=== PATIENT | female | born 1990 | race Asian ===

== ENCOUNTER 2018-08-24 08:11 | Observation (INO) | payer OTHER ==
[2018-08-24] MEDS ORDERED: ceFAZolin 2 GM/DEXTROSE 100 ML IV ONE (09:23)
[2018-08-24] MEDS ORDERED: PHENAZOPYRIDINE HCL 200 MG TAB PO ONE (09:23)
[2018-08-24] MEDS ORDERED: ACETAMINOPHEN 500 MG TAB PO ONE (09:23)
[2018-08-24] MEDS ORDERED: GABAPENTIN 300 MG CAP PO ONE (09:23)
[2018-08-24] MEDS ORDERED: LR 1,000 ML IV ONE (09:24)
[2018-08-24] MEDS ORDERED: LIDOCAINE 1% 2 ML INJ ID PRN (09:24)
--- NOTE | 2018-08-24 10:38 | PDHPUP ---
History & Physical Update H&P update statement: This history and physical update is based on an assessment of the patient which was completed after admission or registration (within 24 hours), but prior to the surgery/procedure. H&P update: H&P reviewed & patient examined, no change in patient's condition since H&P completed
[2018-08-24] MEDS ORDERED: MIDAZOLAM 2 MG/2 ML VIAL IVP ONE (10:57)
--- NOTE | 2018-08-24 10:57 | PDANEPAE ---
ANE Past Medical History - Cardiovascular History Hx Hypertension: No Hx Arrhythmias: No Hx Chest Pain: No Hx Coronary Artery / Peripheral Vascular Disease: No Hx CHF / Valvular Disease: No Hx Palpitations: No Cardiovascular History Comment: high chol - Pulmonary History Hx COPD: No Hx Asthma/Reactive Airway Disease: No Hx Recent Upper Respiratory Infection: No Hx Oxygen in Use at Home: No Hx Sleep Apnea: No Sleep Apnea Screening Result - Last Documented: Negative - Neurologic History Hx Cerebrovascular Accident: No Hx Seizures: No Hx Dementia: No - Endocrine History Hx Diabetes: No - Renal History Hx Renal Disorders: No - Liver History Hx Hepatic Disorders: No - Neurological & Psychiatric Hx Hx Neurological and Psychiatric Disorders: Yes Neurological / Psychiatric History Comment: anxiety - Cancer History Hx Cancer: No - Congenital Disorder History Hx Congenital Disorders: No - GI History Hx Gastrointestinal Disorders: No - Other Health History Other Health History: wears glasses - Chronic Pain History Chronic Pain: Yes (abd pain radiating to right leg) - Surgical History Prior Surgeries: 2017 laprascopic surg for endometriosis. sinus surgery 2014 ANE Review of Systems Review of Systems: - Exercise capacity METS (RN): 4 METS ANE Patient History - Allergies Allergies/Adverse Reactions: No Known Allergies Allergy (Verified 08/04/18 12:19) - Home Medications Home Medications: Naproxen Sodium [Aleve 220 MG (*)] 220 mg PO BID PRN 07/22/18 [Last Taken ] Aygestin 7.5 mg PO DAILY 08/04/18 [Last Taken 08/23/18] - NPO status NPO Since - Liquids (Date): 08/24/18 NPO Since - Liquids (Time): 00:30 NPO Since - Solids (Date): 08/23/18 NPO Since - Solids (Time): 23:30 - Smoking Hx Smoking Status: Never smoked - Family Anes Hx Family Hx Anesthesia Complications: none ANE Labs/Vital Signs - Vital Signs Blood Pressure: 124/85 Heart Rate: 88 Respiratory Rate: 12 O2 Sat (%): 98 Height: 175.26 cm Weight: 58.967 kg ANE Physical Exam - Airway Neck exam: FROM Mallampati Score: Class 1 Mouth exam: normal dental/mouth exam - Pulmonary Pulmonary: no respiratory distress - Cardiovascular Cardiovascular: regular rate and rhythym - ASA Status ASA Status: I ANE Anesthesia Plan Anesthesia Plan: general endotracheal anesthesia Total IV Anesthesia: Yes
[2018-08-24] MEDS ORDERED: HYDROmorphONE/DILAUDID 2 MG/ML INJ ONE (11:00)
[2018-08-24] MEDS ORDERED: PROPOFOL/EMULSION 500 MG/50 ML BOTTLE IV ONE ×2 (11:00→11:55)
[2018-08-24] MEDS ORDERED: LIDOCAINE 2% 100 MG/5 ML SYR ONE (11:01)
[2018-08-24] MEDS ORDERED: KETOROLAC 30 MG/1 ML SDV ONE (11:01)
[2018-08-24] MEDS ORDERED: ROCURONIUM 100 MG/10 ML VIAL ONE (11:01)
[2018-08-24] MEDS ORDERED: DEXAMETHASONE 4 MG/ML VIAL ONE ×2 (11:01)
[2018-08-24] MEDS ORDERED: ONDANSETRON 4 MG/2 ML VIAL ONE (11:01)
[2018-08-24] MEDS ORDERED: METOCLOPRAMIDE 10 MG/2 ML VIAL ONE (11:01)
[2018-08-24] MEDS ORDERED: RANITIDINE 50 MG/2 ML VIAL ONE (11:07)
[2018-08-24] MEDS ORDERED: BUPIVACAINE/EPI 0.5% 30 ML SDV ONE (11:18)
[2018-08-24] MEDS ORDERED: METHYLENE BLUE 0.5% 50 MG/10 ML AMP ONE (11:55)
[2018-08-24] MEDS ORDERED: PROMETHAZINE HCL 25 MG/ML INJ IVP PRN ×2 (12:03→14:02)
[2018-08-24] MEDS ORDERED: ONDANSETRON 4 MG/2 ML VIAL IVP PRN ×2 (12:03→14:02)
[2018-08-24] MEDS ORDERED: MEPERIDINE 25 MG/0.5 ML AMP IVP PRN (12:03)
[2018-08-24] MEDS ORDERED: ALBUTEROL 3 ML DEYVIAL IH PRN (12:03)
[2018-08-24] MEDS ORDERED: ACETAMINOPHEN 500 MG TAB PO PRN (12:03)
[2018-08-24] MEDS ORDERED: NALOXONE HCL 0.4 MG/ML INJ IVP PRN (12:03)
[2018-08-24] MEDS ORDERED: DIAZEPAM 5 MG/ML 1 ML SYR IVP PRN (12:03)
[2018-08-24] MEDS ORDERED: HYDROCODONE/APAP 5/325 TAB PO PRN (12:03)
[2018-08-24] MEDS ORDERED: HYDROmorphONE/DILAUDID 2 MG/ML INJ IVP PRN (12:03)
[2018-08-24] MEDS ORDERED: oxyCODONE IR 5 MG TAB PO PRN (12:03)
[2018-08-24] MEDS ORDERED: fentaNYL 100 MCG/2 ML INJ IVP PRN (12:03)
--- NOTE | 2018-08-24 12:47 | GOP ---
DATE OF OPERATION: 08/24/2018 SURGEON: Josey Castañeda MD ANESTHESIA: General. ANESTHESIOLOGIST: Leroy Sol MD. PREOPERATIVE DIAGNOSIS: Endometriosis. POSTOPERATIVE DIAGNOSIS: Enlarged appendix. PROCEDURE PERFORMED: Minimally invasive appendectomy. FINDINGS: Enlarged appendix. SPECIMENS: Appendix. ESTIMATED BLOOD LOSS: 1 cc. INDICATIONS: The patient is a 27-year-old woman who was in the operating room for severe endometrios is. As Dr. Veras was operating, he noted that the appendix was enlarged. DESCRIPTION OF PROCEDURE: The patient was in the operating room with the procedure already underway. The port was enlarged to accommodate a stapler. I was able to elevate the appendix, and there was very little mesoappendix. Endo-BALTA white load to come across the base of the appendix. Hemostasis w as achieved at the staple line. The appendix was removed. Dr. Veras was then able to complete his portion of the case. /[id number]/MODL
[2018-08-24] MEDS ORDERED: NEOSTIGMINE METHYLSULFATE 5 MG/5 ML SYR ONE (13:07)
[2018-08-24] MEDS ORDERED: GLYCOPYRROLATE 0.2 MG/1 ML VIAL ONE ×2 (13:07)
[2018-08-24] MEDS ORDERED: OXYCODONE/APAP 5/325 TAB PO PRN ×2 (14:02)
[2018-08-24] MEDS ORDERED: ONDANSETRON DISINTEGRATING 4 MG TAB PO PRN (14:02)
--- NOTE | 2018-08-24 14:02 | POSTOPPROG ---
Post Op Note Date of Operation: 08/24/18 Surgeon: Tod Veras Computer Teacher: Alyssa Maria Anesthesiologist: Leroy Sol Anesthesia: GET(General Endotracheal) Pre-op Diagnosis: Endometriosis Post-op Diagnosis: Same Procedure: Robotic excision of endo, bilat ureterolysis, rectal lesion, appy Findings: Endo Inf/Abcess present in the surg proc area at time of surgery?: No EBL: Minimal Complications: None
[2018-08-24] MEDS ORDERED: fentaNYL 100 MCG/2 ML INJ ONE (14:28)
[2018-08-24] MEDS ORDERED: LR 1,000 ML IV SCH (14:30)
--- NOTE | 2018-08-24 15:03 | GOP ---
DATE OF OPERATION: 08/24/2018 SURGEON: Tod Veras MD [employer] SPECIALIST: Alyssa Maria CFA. ANESTHESIA: General. PREOPERATIVE DIAGNOSIS: 1. Endometriosis. 2. Dysmenorrhea. 3. Dyschezia. 4. Cyclic pelvic pain. POSTOPERATIVE DIAGNOSIS: 1. Endometriosis. 2. Dysmenorrhea. 3. Dyschezia. 4. Cyclic pelvic pain. PROCEDURE PERFORMED: 1. Robotic excision of extensive endometriosis in the anterior and posterior cul-de-sac, bilateral o varian fossae, and gynecologic structures. 2. Bilateral ureterolysis. 3. Bilateral ovariopexy. 4. Excision of rectal lesion. 5. Appendectomy by Dr. Castañeda. FINDINGS: SPECIMENS: 1. Pelvic peritoneum with endometriosis. 2. Rectal lesion. 1. Appendix. 3. ESTIMATED BLOOD LOSS: Less than 20 mL. DESCRIPTION OF PROCEDURE: The patient was taken the operating room where she was identified. Genera l anesthesia was administered and found to be adequate. She was placed in the lithotomy position and prepared and draped in normal sterile fashion. A Hulka tenaculum was placed in the uterus for manip ulation. A Brand catheter was then placed. A 1 cm infraumbilical incision was made with a scalpel. The Veress needle with CO2 gas flowing was a dvanced into the peritoneal cavity. The abdomen was then insufflated with carbon dioxide gas. The 1 2 mm trocar, followed by the laparoscope were then inserted. The upper abdomen was unremarkable. Th ere was no evidence of endometriosis on either diaphragm, liver, stomach, gallbladder, or upper abdom inal bowel. 2 lateral ports were placed on the right and 1 on the left under direct visualization. She then was placed in Trendelenburg position and the da Jimmy robot docked on the left side. The in struments were then brought into the abdominal cavity under direct visualization. The patient was found to have endometriosis studding in the anterior cul-de-sac with no deep lesions. The rectum was adherent to the posterior lower uterine segment and cervix, as well as the right adn exa. The right tube and ovary were also adherent to the posterior aspect of the uterus. The left tu be and ovary were adherent to the posterior aspect of the uterus as well. There was multiple areas o f endometriosis throughout the posterior cul-de-sac and overlying both ureters. She also had clear e ndometriosis on the appendix. The appendix was adherent to the right pelvic brim. It was gently dis sected free. The appendiceal artery was skeletonized. Dr. Josey Castañeda of General Surgery came in to perform the appendectomy. The entire anterior cul-de-sac peritoneum was completely excised. The endometriomas were actually pe ritoneal pockets adjacent to the adnexa, as well as the rectum, but not truly within the right ovary. Right adnexa was completely cleared free. Endometriosis was treated. Similar procedure was perfor med on the patient's left side. A bilateral ovariopexy was performed by attaching each ovary to the ipsilateral round ligaments near the internal inguinal ring with 2-0 Vicryl Rapide suture. A bilater al ureterolysis was required. The ureters were gently dissected free of the pelvic brim. There were lateralized off the overlying peritoneum from the pelvic brim down to the bladder. The right ureter was densely adherent to the right uterosacral ligament, as well as the cervix, and adjacent to the r ectum where it had been adherent to the right adnexa. It was completely dissected free. Once this was accomplished, both ovarian fossa peritoneum were completely excised. The posterior cul -de-sac peritoneum from the distal rectum up to the cervix and laterally to the uterosacral ligaments was excised. The rectum was then gently dissected off the lower uterine segment, cervix, and upper vagina. The rectal lesion was then dissected free. This extended approximately 30% to 40% into the muscularis. The pelvis was then copiously irrigated with sterile saline and hemostasis was present. 3 sheets of Interceed were used to cover the raw areas to try to minimize postoperative adhesion formation. The robot was then undocked. The fascia was closed with 0 Vicryl, skin with 4-0 Monocryl and surgical ad hesive. Anesthesia was reversed. The patient taken the PACU awake in stable condition. COMPLICATIONS: None. DISPOSITION: Patient stable to PACU. /[id number]/MODL
[2018-08-24] MEDS: HYDROmorphONE/DILAUDID 1 MG/ML INJ IVP PRN (16:25)
[2018-08-24] MEDS: KETOROLAC 30 MG/1 ML SDV IVP SCH (17:50)
[2018-08-24] MEDS: GABAPENTIN 300 MG CAP PO SCH ×2 (19:15→22:55)
[2018-08-24] MEDS: SIMETHICONE 80 MG TAB CHEW PO SCH ×2 (20:43→22:55)
[2018-08-24] MEDS ORDERED: DOCUSATE SODIUM 100 MG CAP PO SCH (21:00)
[2018-08-24] MEDS: ceFAZolin 2 GM/DEXTROSE 100 ML IV SCH (22:55)
[2018-08-25] MEDS: KETOROLAC 30 MG/1 ML SDV IVP SCH ×2 (00:39→05:49)
[2018-08-25] MEDS: HYDROmorphONE/DILAUDID 1 MG/ML INJ IVP PRN (01:00)
[2018-08-25] MEDS: ceFAZolin 2 GM/DEXTROSE 100 ML IV SCH (05:49)
[2018-08-25 06:08] LABS: PLATELET COUNT 252 10^3/uL (150-400)
[2018-08-25] MEDS: SIMETHICONE 80 MG TAB CHEW PO SCH (08:18)
[2018-08-25 10:37] VITALS: BP 112/67
--- NOTE | 2018-08-25 11:48 | GDS ---
DISCHARGE DIAGNOSES: 1. Extensive stage IV endometriosis. 2. Dysmenorrhea. 3. Dyschezia. PROCEDURES: 1. Robotic excision of endometriosis. 2. Bilateral ureterolysis. 3. Bilateral ovarian pexy. 4. Excision of rectal lesion. 5. Appendectomy. HISTORY: The patient has a long history of pelvic pain and prior surgery for endometriosis. She was taken to the operating room on 08/24/2018, where she underwent the above-mentioned procedures withou t complications. Her postoperative course was uneventful. The morning after surgery she was ambulating, voiding, and tolerating a general diet. She was discharged home on postoperative day #1 in good condition. MEDICATIONS: Included Percocet and Aleve for pain. FOLLOWUP: She is to follow up in the office 2 weeks after discharge. /[id number]/MODL
== END 2018-08-25 11:42 | disposition home or self-care (01) ==
LOC: F3E 09:25 → FOB 15:09
PROVIDERS: ADMIT Obstetrics & Gynecology; ATTEND Obstetrics & Gynecology
DX: N80.3 Endometriosis of pelvic peritoneum (principal); N80.1 Endometriosis of ovary; N94.6 Dysmenorrhea, unspecified; K38.8 Other specified diseases of appendix; K59.00 Constipation, unspecified
CPT/HCPCS: 44970; 58662; C1765; G0378; J0690; J1100; J1170; J1885; J2001; J2250; J2405; J2704; J2710; J2765; J2780; J3010; Q9968

== ENCOUNTER 2019-03-09 21:24 | Emergency (ER) | payer OTHER ==
[2019-03-09] MEDS ORDERED: PROPARACAINE 0.5% 15 ML OPHT DROP OP ONE (21:26)
--- NOTE | 2019-03-09 21:29 | EDPHY ---
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 She reports that she felt immediate, constant burning sensation. She denies any vision loss, diplopia, ocular discharge. Her last eye exam was 1 year ago and she wears corrective lenses. Does not wear contact lenses. Tetanus is up-to-date. Modifying Factors: None Comment: ROS: A comprehensive 10 system review of systems is otherwise negative aside from elements mentioned in the history of present illness. MEDICAL/SURGICAL/SOCIAL HISTORY: Medical history: Endometriosis, chronic pain in to right leg from endometriosis. 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 Nonsmoker. Family history noncontributory. General appearance: Slightly anxious female, awake and alert, polite and cooperative Visual Acuity: noted from Nurse's notes. Pupils: equal round and reactive to light. EOMI Lids: no edema or swelling Skin: no proptosis, no periorbital erythema or swelling, no vesicles Conjunctivae: not injected, no discharge Cornea: exam with fluorescein shows no uptake Neuro: Cranial nerves 2-12 grossly intact Source: Patient Exam Limitations: No limitations - Personal History Current Tetanus Diphtheria and Acellular Pertussis (TDAP): Yes - Medical/Surgical History Hx Asthma: No Hx Chronic Respiratory Disease: No Hx Diabetes: No Hx Cardiac Disease: No Hx Renal Disease: No Hx Cirrhosis: No Hx Alcoholism: No Hx HIV/AIDS: No Hx Splenectomy or Spleen Trauma: No Other PMH: Endometriosis, lap surgery in 2016, chronic pain in to right leg from endometriosis. Nasal surgery in 2013, - Social History Smoking Status: Never smoked Constitutional: Initial Vital Signs Temperature (C) 36.6 C 03/09/19 21:25 Heart Rate 88 03/09/19 21:25 Respiratory Rate 16 03/09/19 21:25 Blood Pressure 110/72 03/09/19 21:25 O2 Sat (%) 98 03/09/19 21:25 O2 Delivery Mode Room Air Allergies/Adverse Reactions: No Known Allergies Allergy (Verified 03/09/19 22:17) Home Medications: Medication Instructions Recorded Electrazol 03/09/19 Medical Decision Making ED Course/Re-evaluation: Tetanus is up-to-date upon arrival ocular pH=8 Flushed with 1 L normal saline Repeat ocular pH=8 Given another 1 L normal saline irrigation Repeat ocular pH=7.5 irrigated with a 3rd liter NS repeat ocular pH=7 Given erythromycin eyedrops MSDS sheet reviewed and shows that this is a corrosive chemical and recommends flushing eyes for 15-20 minutes. No signs of corneal abrasion, ulcer Ophthalmology follow-up This patient was seen under the supervision of my secondary supervising physician. I evaluated and cared for this patient with attending. Differential Diagnosis: Differential diagnosis includes but is not limited to keratitis, conjunctivitis , corneal abrasion, chemical burn. Departure - Departure Disposition: Home, Routine, Self-Care Clinical Impression: Chemical burn of left conjunctiva Qualifiers: Encounter type: initial encounter Qualified Code(s): T26.62XA - Corrosion of cornea and conjunctival sac, left eye, initial encounter Condition: Good Instructions: Chemical Eye [place] (ED) Additional Instructions: Apply Erythromycin 1-2 drops into your left eye every 6 hr while awake x 5 days. Please avoid using your hands to touch your eyes. Wash your hands frequently with mild soap and water. Apply cool compresses for 15-20 minutes at a time several times per day for the next 1-2 days. Follow up with ophthalmology in 5-7 days if no improvement in symptoms. Take Tylenol 650 mg every 4 hr and/or ibuprofen 600 mg every 8 hr with food as needed for pain. Eye Complaint: Return to the Emergency Department for any increase in eye pain, redness, swelling, discharge or any worsening of your vision. Referrals: Tod Garibay MD [Medical Doctor] - As per Instructions
[2019-03-09] MEDS ORDERED: ERYTHROMYCIN 0.5% 1 GM OPHT.OINT LEFTEYE ONE (22:44)
[2019-03-10] MEDS ORDERED: ERYTHROMYCIN 0.5% 1 GM OPHT.OINT ONE ×2 (00:51→00:52)
[2019-03-10 00:59] VITALS: BP 112/70
== END 2019-03-10 00:30 | disposition home or self-care (01) ==
DX: T26.62XA Corrosion of cornea and conjunctival sac, left eye, initial encounter (principal); T65.891A Toxic effect of other specified substances, accidental (unintentional), initial encounter; Y99.0 Civilian activity done for income or pay